=== PATIENT | female | born 1985 | race African-American/Black ===

== ENCOUNTER 2017-10-19 17:11 | Emergency (ER) | payer OTHER ==
[~2017-10-19] VITALS: Ht 172.7 cm; Wt 106.3 kg
[~2017-10-19 17:11] MED LIST: AMOXICILLIN500 M1 PO; BENADRYL50 MG PO; BIRTH CONTROL PILL; CAMILA0.35 MG PO; CIPRO500 MG PO; MOBIC7.5 MG PO; MOTRIN800 MG PO; Micronor,Nor-Q-D,Err PO; Motrin PO; NAPROSYN500 MG PO; NO HOME MEDS
[2017-10-19 18:31] LABS: HEMATOCRIT 44.1 % (36.0-46.0); MCHC 35.8 G/DL (30.0-36.0); MCV 83.7 FL (83-99); RBC DIS.WIDTH-CV 12.2 % (11.8-14.6); RBC DIS.WIDTH-SD 37.2 % (39-53); RED BLOOD COUNT 5.27 M/uL (3.80-5.20); WHITE BLOOD COUNT 8.2 K/uL (4.1-10.2)
[2017-10-19 18:47] LABS: CHLORIDE 103 mEq/L (99-109); POTASSIUM 3.4 mEq/L (3.7-5.4); SODIUM 138 mEq/L (136-147)
[2017-10-19 18:48] LABS: GLUCOSE 84 mg/dL (70-99)
[2017-10-19 18:50] LABS: ANION GAP 9 MEQ/L (2-14)
[2017-10-19 18:52] LABS: GFR ESTIMATE (CALCULATED) > 59 mL/min/
[2017-10-19 18:53] LABS: UREA NITROGEN (BUN) 10 mg/dL (9-23)
[2017-10-19 19:08] LABS: TROP-I INTERPRETATION NEGATIVE; TROPONIN-I < 0.01 ng/mL (0.0-0.30)
[2017-10-19 19:16] LABS: ADD MIUA? YES; BILIRUBIN NEGATIVE; BLOOD NEGATIVE; COLOR YELLOW ((YELLOW)); GLUCOSE (STRIP) NEGATIVE; KETONES NEGATIVE; LEUKOCYTES TRACE; NITRITE NEGATIVE; PROTEIN (STRIP) 30; SPECIFIC GRAVITY 1.016 (1.000-1.030)
[2017-10-19 19:42] LABS: BACTERIA RARE /HPF; EPITHELIAL CELLS 1+ /HPF; MUCUS TRACE /LPF; RED BLOOD CELLS 0-5 /HPF (0-5); WHITE BLOOD CELLS 0-5 /HPF (0-5)
[2017-10-19 19:45] LABS: INTERNAL CONTROL VALID? YES; MONOSPOT (MONONUCLEOSIS SEROL) NEGATIVE
[2017-10-19] MEDS ORDERED: MOTRIN800 MG PO (20:18)
[2017-10-19 21:10] VITALS: BP 113/77
[2017-10-19 21:29] LABS: MEAN PLAT.VOLUME 12.5 uM^3 (9.5-12.4); PLAT.SUFFICIENCY DECREASED; PLATELET COUNT 111 K/uL (156-360)
== END 2017-10-19 21:12 | disposition home or self-care (01) ==
LOC: EME 17:11
PROVIDERS: Emergency Medicine
DX: J02.0 Streptococcal pharyngitis (principal); R07.9 Chest pain, unspecified; Z91.040 Latex allergy status
CPT/HCPCS: 71020; 80048; 81003; 84484; 85027; 86308; 87502; 87651 90; 93005; 99281; 99284; J0561

== ENCOUNTER 2018-04-03 18:04 | Emergency (ER) | payer OTHER ==
[~2018-04-03] VITALS: Ht 172.7 cm; Wt 106.3 kg
[2018-04-03 19:58] VITALS: BP 101/81
== END 2018-04-03 19:58 | disposition home or self-care (01) ==
LOC: EME 18:04
DX: S16.1XXA Strain of muscle, fascia and tendon at neck level, initial encounter (principal); V49.40XA Driver injured in collision with unspecified motor vehicles in traffic accident, initial encounter; Y92.410 Unspecified street and highway as the place of occurrence of the external cause; Z79.3 Long term (current) use of hormonal contraceptives; Z91.040 Latex allergy status
CPT/HCPCS: 99281; 99283

== ENCOUNTER 2018-05-01 11:14 | Emergency (ER) | payer OTHER ==
[~2018-05-01] VITALS: Ht 172.7 cm; Wt 104.5 kg
[2018-05-01 14:30] VITALS: BP 128/80
== END 2018-05-01 15:23 | disposition home or self-care (01) ==
LOC: EME 11:14
DX: J02.0 Streptococcal pharyngitis (principal); R06.02 Shortness of breath; R50.9 Fever, unspecified
CPT/HCPCS: 81003; 81025; 87651 90; 99281; 99284; J0561; J1100